=== PATIENT | female | born 1980 | race African-American/Black ===

== ENCOUNTER 2019-08-01 15:46 | Emergency (ER) | payer MEDICAID, MEDICARE, OTHER ==
[~2019-08-01] VITALS: Ht 162.6 cm; Wt 131.5 kg
[~2019-08-01 15:46] MED LIST: CLON0.1T PO; LISI1TAB20 PO; OXYC10TA PO
[2019-08-01 15:57] VITALS: BP 153/106
[2019-08-01] MEDS ORDERED: BENZ100C PO (16:11)
--- NOTE | 2019-08-01 16:12 | PHYS DOC ---
Past Medical History Past Medical History: Hypertension Additional Past Medical Histor: back pain Past Surgical History: , Other Additional Past Surgical Histo: back surrgery Alcohol Use: None Drug Use: None Adult General Chief Complaint Chief Complaint: COUGH HPI HPI Patient is a 38 year old AA female who presents to the emergency department with complaints of a productive cough with creamy mucus, runny nose, body aches, chills, sweats, headaches, fatigue, and tactile fevers with nausea for the last 3 days. Patient states she has had 3 episodes of diarrhea today. She denies any dysuria, hematuria, increased urinary frequency, abdominal pain, ear pain, v ision changes, or dizziness at this time. Patient states she has had a sore throat also. Patient denies any shortness of breath or wheezing. She states she does smoke a pack of cigarettes a day. Patient reports history of high blood pressure states that she took her blood pressure medication this morning. She currently rates her discomfort an 8 out of 10 on the pain scale, she denies any alleviating factors. All other ROS is neg unless otherwise noted in HPI. Review of Systems Review of Systems See Above Allergies Allergies Allergies Coded Allergies Type Severity Reaction Last Updated Verified morphine Allergy Intermediate hives 01/04/15 Yes Physical Exam Physical Exam See Above Constitutional: Well developed, well nourished, no acute distress, ill appearance, obese HENT: Normocephalic, atraumatic, bilateral external ears normal, bilateral TMs normal, posterior pharynx congested, oropharynx moist, no oral exudates, nasal turbinates erythematous bilaterally Eyes: PERRLA, EOMI, conjunctiva normal, no discharge. [] Neck: Normal range of motion, no stridor. [] Cardiovascular:Heart rate regular rhythm Lungs & Thorax: Bilateral breath sounds clear to auscultation, Respirations even and unlabored, no retractions, no respiratory distress[] Skin: Warm, dry, no erythema, no rash. [] Back: No tenderness Extremities: No cyanosis, ROM intact Neurologic: Alert and oriented X 3, no focal deficits noted. [] Psychologic: Affect normal, judgement normal, mood normal. [] Current Patient Data Vital Signs Vital Signs Date Time Temp Pulse Resp B/P (MAP) Pulse Ox O2 Delivery O2 Flow Rate FiO2 08/01/19 15:57 98.9 106 18 153/106 (122) 98 Room Air 98.9 EKG EKG [] Radiology/Procedures Radiology/Procedures [] Course & Med Decision Making Course & Med Decision Making Pertinent Labs and Imaging studies reviewed. (See chart for details) Diagnosis URI with cough and congestion Advised patient that testing for the flu was not necessary as the symptoms started 3 days ago. Offered to prescribe patient an inhaler to to use as needed for shortness of breath. Patient declines inhaler states that she is not short of breath. Prescription written for Michellesalon Sara. Patient given URI instructions. Follow up with her primary care doctor if symptoms persist, return to the ER if symptoms worsen. Patient verbalized an understanding of home care, medications, follow-up, and return to ED instructions and was in agreement with the plan of care. [] Dragon Disclaimer Dragon Disclaimer This electronic medical record was generated, in whole or in part, using a voice recognition dictation system. Departure Departure Impression: Primary Impression: URI with cough and congestion Disposition: HOME, SELF-CARE Condition: STABLE Referrals: UTE SALDANA (PCP) Patient Instructions: Cough, Adult, Ynkz-[id number], Upper Respiratory Infection, Adult, Ivob-jp-Vici Additional Instructions: Fill prescription(s) and use as directed. Recommend use of a Cool mist humidifier in room at bedtime. Alternate Tylenol or ibuprofen as needed for pain/fever. Increase clear fluids. Avoid airway triggers such as smoke, fragrance, dust, and pollen. Follow-up with your primary care doctor if symptoms persist, return to the ER if symptoms worsen. Scripts Benzonatate (TESSALON PERLE) 100 Mg Capsule 1 CAP PO TID PRN for COUGH for 7 Days, #21 CAP 0 Refills Prov: NANY TOBAR ASSISTANT LOAN PROCESSOR 08/01/19 NANY TOBAR ASSISTANT LOAN PROCESSOR Aug 01, 2019 16:12
== END 2019-08-01 16:20 | disposition home or self-care (01) ==
LOC: ER 15:46
DX: J06.9 Acute upper respiratory infection, unspecified (principal); R05 Cough; R09.81 Nasal congestion; R19.7 Diarrhea, unspecified; R51 Headache; R50.9 Fever, unspecified; I10 Essential (primary) hypertension; Z98.890 Other specified postprocedural states; Z88.6 Allergy status to analgesic agent
CPT/HCPCS: 99283

== ENCOUNTER 2019-08-17 23:52 | Emergency (ER) | payer SELFPAY ==
[~2019-08-17] VITALS: Ht 162.6 cm; Wt 131.5 kg
[~2019-08-17 23:52] MED LIST changes: +BENZ100C PO
[2019-08-17 23:57] VITALS: BP 165/95
--- NOTE | 2019-08-18 00:13 | PHYS DOC ---
Past Medical History Past Medical History: Hypertension Additional Past Medical Histor: back pain Past Surgical History: , Other Additional Past Surgical Histo: back surrgery Alcohol Use: None Drug Use: None Adult General Chief Complaint Chief Complaint: KNEE SWELLING [facility] HPI 39-year-old female presents to the emergency department with complaints of right knee pain, swelling. Patient states this is been ongoing for approximately 1 week worse today states she's had difficulty with ambulating. She denies any injury, no fall, no fevers. Ambulation and weightbearing make her pain worse. Nothing makes her pain better, she has tried liqo-bvc-leygksk medications without relief. Review of Systems Review of Systems Constitutional: Denies fever or chills [] Cardiovascular: No additional information not addressed in HPI [] GI: Denies abdominal pain, nausea, vomiting, bloody stools or diarrhea [] Musculoskeletal: right knee pain Integument: Denies rash or skin lesions [] Neurologic: Denies headache, focal weakness or sensory changes [] All other systems were reviewed and found to be within normal limits, except as documented in this note. Current Medications Current Medications Current Medications Medications (Trade) Dose Ordered Sig/Josseline Start Time Stop Time Status Last Admin Dose Admin Ketorolac Tromethamine (Toradol Im) 60 mg 1X ONCE 08/18/19 01:00 08/18/19 01:01 08/18/19 00:53 60 MG Allergies Allergies Allergies Coded Allergies Type Severity Reaction Last Updated Verified morphine Allergy Intermediate hives 01/04/15 Yes Physical Exam Physical Exam Constitutional: Well developed, well nourished, mild distress 2/2 pain, non- toxic appearance. [] Cardiovascular:Heart rate regular rhythm, no murmur [] Lungs & Thorax: Bilateral breath sounds clear to auscultation [] Abdomen: Bowel sounds normal, soft, no tenderness, no masses, no pulsatile masses. [] Skin: Warm, dry, no erythema, no rash. [] Extremities: No tenderness, minimal swelling appreciated to right knee, pain with ROM however difficult to appreciated effusion given body habitus[] Neurologic: Alert and oriented X 3, no focal deficits noted. [] Psychologic: Affect normal, judgement normal, mood normal. [] Current Patient Data Vital Signs Vital Signs Date Time Temp Pulse Resp B/P (MAP) Pulse Ox O2 Delivery O2 Flow Rate FiO2 08/17/19 23:57 98.4 105 20 165/95 (118) 98 Room Air 98.4 EKG EKG [] Radiology/Procedures Radiology/Procedures [facility] [address] [place] [address] IMAGING REPORT Signed PATIENT: ASYA CONN ACCOUNT: [id number] : 1980 LOCATION: ER AGE: 39 SEX: F EXAM STATUS: REG ER ORD. PHYSICIAN: RAFAEL GONZALEZ MD REASON: knee pain/swelling PROCEDURE: KNEE RIGHT 3V Exam: Right knee 3 views INDICATION: Knee pain/swelling TECHNIQUE: Frontal, lateral and oblique views of the right knee Comparisons: None FINDINGS: Small suprapatellar effusion is noted. Bone mineralization is normal. No acute or healed fractures. Joint spaces are well-maintained. IMPRESSION: Small suprapatellar effusion without underlying osseous abnormality identified. Electronically signed by: Mil Lagunas MD (08/18/2019 12:40 AM) [facility] DICTATED and SIGNED BY: MIL LAGUNAS MD DATE: 08/18/1939 [] Course & Med Decision Making Course & Med Decision Making Pertinent Labs and Imaging studies reviewed. (See chart for details) []39-year-old female presents to the emergency department with complaints of right knee pain, swelling. Patient states this is been ongoing for approximately 1 week worse today states she's had difficulty with ambulating. She denies any injury, no fall, no fevers. Ambulation and weightbearing make her pain worse. Nothing makes her pain better, she has tried zyaw-dyn-cgstuhi medications without relief. Xray with small prepatellar effusion, no fracture Recommend knee immobilizer and crutches as needed Recommend follow up with Ortho as outpatient - referral provided Tylenol/Motrin as needed for pain Jhonatan Disclaimer Dragon Disclaimer This electronic medical record was generated, in whole or in part, using a voice recognition dictation system. Departure Departure Impression: Primary Impression: Knee pain Referrals: NO PCP (PCP) Patient Instructions: Knee Pain, Yjmw-cl-Oboh Additional Instructions: Recommend follow up with PCP 3 - 5 days Return to the ER with worsening symptoms, fever, altered mental status Tylenol/Motrin as needed for pain Knee Immobilizer placed to right knee Crutches as needed Toradol 60mg IM shot provided upon discharge Problem Qualifiers Primary Impression: Knee pain Chronicity: acute Laterality: right Qualified Codes: M25.561 - Pain in right knee RAFAEL GONZALEZ MD Aug 18, 2019 00:13
--- NOTE | 2019-08-18 00:44 | RAD ---
Exam: Right knee 3 views INDICATION: Knee pain/swelling TECHNIQUE: Frontal, lateral and oblique views of the right knee Comparisons: None FINDINGS: Small suprapatellar effusion is noted. Bone mineralization is normal. No acute or healed fractures. Joint spaces are well-maintained. IMPRESSION: Small suprapatellar effusion without underlying osseous abnormality identified. Electronically signed by: Mil Woodson MD (08/18/2019 12:40 AM) [facility]
[2019-08-18] MEDS ORDERED: KETOROLAC 60 MG/2 ML VIAL. IM ONE (01:00)
== END 2019-08-18 01:23 | disposition home or self-care (01) ==
LOC: ER 23:52
DX: M25.561 Pain in right knee (principal); I10 Essential (primary) hypertension; Z98.890 Other specified postprocedural states; Z88.6 Allergy status to analgesic agent
CPT/HCPCS: 29105; 73562; 96372; 99284; J1885

== ENCOUNTER 2020-01-27 01:39 | Emergency (ER) | payer MEDICAID ==
[~2020-01-27] VITALS: Ht 162.6 cm; Wt 126.5 kg
[2020-01-27 01:50] VITALS: BP 156/83
[2020-01-27] MEDS ORDERED: CYCL10TA2 PO (02:23)
[2020-01-27] MEDS ORDERED: DICL50TA4 PO (02:23)
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
[2020-01-27] MEDS ORDERED: traMADol 50 MG TABLET PO ONE (02:45)
[2020-01-27] MEDS ORDERED: METHOCARBAMOL 750 MG TABLET PO ONE (02:45)
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
== END 2020-01-27 03:23 | disposition home or self-care (01) ==
LOC: ER 01:39
DX: S29.012A Strain of muscle and tendon of back wall of thorax, initial encounter (principal); M54.2 Cervicalgia; M79.651 Pain in right thigh; I10 Essential (primary) hypertension; F17.200 Nicotine dependence, unspecified, uncomplicated; Z98.890 Other specified postprocedural states; V89.2XXA Person injured in unspecified motor-vehicle accident, traffic, initial encounter; Y93.89 Activity, other specified; Y92.413 State road as the place of occurrence of the external cause; Y99.8 Other external cause status
CPT/HCPCS: 72040; 72072; 81025; 99284

== ENCOUNTER → 2020-02-08 | Outpatient (CLI) | payer MEDICAID ==
[2020-01-27 01:50] VITALS: BP 156/83
[~2020-02-08] MED LIST changes: +CYCL10TA2 PO; +DICL50TA4 PO
--- NOTE | 2020-02-08 16:02 | KCIC ---
EXAMINATION: Magnetic resonance imaging (MRI) of the lumbar spine without contrast 02/08/2020 2:45 PM HISTORY: Low back pain into the right hip, leg and knee TECHNIQUE: Multiplanar multi-weighted MRI of the lumbar spine was performed without intravenous contrast using the standard lumbar spine protocol. Contrast information: None administered. COMPARISON: None available. FINDINGS: The alignment of the lumbar spine is normal. Transitional anatomy is identified the lumbosacral junction with lumbarization of the first sacral segment and rudimentary disc at S1-S2 for the purposes of this examination. Vertebral bodies demonstrate normal signal intensity on all sequences. There are no compression fractures. The conus medullaris terminates at the level of L1. The distal spinal cord signal intensity is normal. Intervertebral disks have normal height and signal intensity. There are no annular fissures identified. Limited views of the abdomen and pelvis show no soft tissue abnormality. The aorta is normal. L1-L2: The disc is normal in configuration. There is no facet arthropathy. There is no neuroforaminal stenosis. There is no spinal canal stenosis. L2-L3: The disc is normal in configuration. There is no facet arthropathy. There is no neuroforaminal stenosis. There is no spinal canal stenosis. L3-L4: The disc is normal in configuration. There is no facet arthropathy. There is no neuroforaminal stenosis. There is no spinal canal stenosis. L4-L5: The disc is normal in configuration. There is no facet arthropathy. There is no neuroforaminal stenosis. There is no spinal canal stenosis. L5-S1: There is a circumferential disc bulge with right central disc extrusion extending to the right foraminal zone. There is moderate facet arthropathy with ligamentum flavum infolding. There is moderate to severe right and mild left neuroforaminal stenosis. There is moderate to severe spinal canal stenosis. IMPRESSION: Circumferential disc bulge with right central disc extrusion extending to the right foraminal zone with moderate facet arthropathy and ligamentum flavum infolding. Findings result in moderate to severe right and mild left neuroforaminal stenosis and moderate to severe spinal canal stenosis. Electronically signed by: Agueda Lim MD (02/08/2020 3:59 PM) [facility]
--- NOTE | 2020-02-08 16:09 | KCIC ---
MR of the right knee HISTORY: Right knee pain. Swelling. TECHNIQUE: Routine multiplanar sequences are obtained. FINDINGS: Ocuo-ol-[id number] motion degradation. Linear signal within the medial meniscus with slight inferior surface violation on a sagittal slice, raising the question of a small tear but this appearance is likely accentuated by the motion. Lateral meniscal signal, also likely exaggerated by the motion degradation, no definitive tear. Anterior and posterior cruciate ligaments are intact. Mild thickening or scarring of the proximal medial collateral ligament without acute tear. No acute tear fibular collateral ligament, biceps femoris tendon or popliteus tendon attachment. The patellar tendon and quadriceps tendon are intact. No acute retinacular disruption. Moderate joint effusion. Trace fluid in the popliteal fossa. Small full-thickness chondral defect of the inferior patella, measures 4 mm wide by 7 mm height. Minimal subjacent marrow edema. Severe chondral thinning of the medial joint compartment, particularly the medial femoral condylar weightbearing aspect. Small lateral compartment osteophytes without gross chondral defect. No acute fracture. No aggressive bone destruction. Minimal fluid along the anterior knee. IMPRESSION: 1. Mild signal within medial and lateral menisci. This is likely accentuated by motion degradation. No definite tear but difficult to exclude a small tear of either meniscus. 2. Small full-thickness articular cartilage defect of the patella. 3. Severe degenerative chondral thinning at the medial joint compartment. 4. Moderate joint effusion. Electronically signed by: Dave Troncoso MD (02/08/2020 4:06 PM) [place] [id number]
== END | disposition home or self-care (01) ==
LOC: KCIC MRI 13:59
PROVIDERS: ATTEND Physician Assistant
DX: M47.816 Spondylosis without myelopathy or radiculopathy, lumbar region (principal); M48.061 Spinal stenosis, lumbar region without neurogenic claudication; M25.461 Effusion, right knee; M25.761 Osteophyte, right knee; M99.53 Intervertebral disc stenosis of neural canal of lumbar region; M48.07 Spinal stenosis, lumbosacral region
CPT/HCPCS: 72148; 73721

== ENCOUNTER → 2020-03-24 | Outpatient (CLI) | payer MEDICAID ==
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
== END | disposition home or self-care (01) ==
LOC: PNCL 10:13
PROVIDERS: ATTEND Anesthesiology
DX: M54.5 Low back pain (principal); I10 Essential (primary) hypertension; F17.210 Nicotine dependence, cigarettes, uncomplicated; Z88.8 Allergy status to other drugs, medicaments and biological substances; Z82.49 Family history of ischemic heart disease and other diseases of the circulatory system
CPT/HCPCS: G0463

== ENCOUNTER → 2020-04-17 | Outpatient (CLI) | payer MEDICAID ==
[~2020-04-17] MED LIST changes: +IOHEXOL 180 MG/ML 10 ML VIAL. ONE; +methylPREDNISolone ACETATE 40 MG/ML VIAL. ONE; +methylPREDNISolone ACETATE 80 MG/ML VIAL. ONE
--- NOTE | 2020-04-17 11:28 | PDOC ---
Progress Note - Pain Clinic Date of Service: DOS: DATE: 04/17/20 TIME: 11:24 Diagnosis: Dx: Lumbar radiculopathy with lumbar degenerative disc disease and lumbar spinal stenosis History or Present Illness: HPI: 39-year-old female returns for follow-up status post initial evaluation and preauthorization for lumbar epidural steroid injection. Patient reports still significant pain low back right lower extremities was previously in the posterior gluteus posterior thigh to the calf as well on the right side. Patient reports the Medrol Dosepak retry was not significantly improving the pain she reports pain is 10 on a scale of 10 is worst the past week 10 on average and a 10 its least is a 10 today. Patient reports no new motor or sensory deficits no bowel or bladder incontinence or other complaints. Patient reports the pain wakes her from sleep about every 4 hours, no overt motor loss but significant fatigability the right leg with walking and standing better with sitting. Physical Exam: VS: Blood pressure is 130/84 pulse 90 respirations 16 temperature 98.2 F height is 5 feet forges weight is 265 pounds PE: PHYSICAL EXAMINATION: GENERAL: The patient is awake, alert, oriented, appropriate, very pleasant demeanor HEENT: Shows normocephalic, atraumatic. Extraocular movements are intact and symmetrical. Oral cavity: Mucous membranes moist and pink. NECK: Shows anterior throat supple without palpable lymphadenopathy noted. Swallow reflex symmetrical. CHEST: Shows normal on inspection. Breath sounds are clear bilaterally. HEART: Shows S1, S2 clear. No murmurs auscultated. ABDOMEN: Soft, nontender, nondistended. No palpable organomegaly is noted. No rebound or guarding demonstrated. BACK: Shows spine grossly in the midline. Normal-appearing cervical lordotic curvature. There is slightly increased thoracic kyphosis, some minor flattening of the lumbar lordotic curvature. Lumbar paraspinous muscles show symmetrical on inspection, on palpation shows some moderate tenderness diffusely throughout the upper, middle and lower distribution of the paraspinous muscles bilaterally without specific trigger points, without radiation of pain. The patient has good rotational motion of the lumbar spine, both laterally as well as extension and flexion without significant difficulty. EXTREMITIES: Lower extremities show deep tendon reflexes 2+ in the patellar and tendo calcaneus tendons. Motor exam is 4 on a scale of 5 with right dorsiflexion, extension, quadriceps and hamstring flexion and 5/5 on the left. Peripheral pulses are 1+ posterior tibial. No peripheral edema is noted bilaterally. Lower extremities are warm and dry to touch, equal in color and appearance. SKIN: Shows warm and dry, good turgor. No edema. No sores, rashes or bruising throughout. Procedure: Procedure: Options were discussed with the patient. Patient will chart reviewed his current medication regimen updated current review of systems updated today as well. We will proceed with a lumbar epidural steroid injection today with fluoroscopic guidance. Risks are discussed including but not limited to ble eding infection possibility of epidural hematoma subsequent neurological compromise dural puncture headache spinal cord and or nerve damage side effects of steroid medication and portals regarding pain control. Patient understands wishes to proceed. Patient return to clinic in approximately 2 weeks for follow-up, was counseled as to return appointment activity level and side effe cts to be aware of. Medication Injected: Med Injected: Procedure is lumbar epidural steroid injection under local anesthetic using sterile prep and drape at the L5-S1 level using C-arm fluoroscopic guidance in both AP and lateral views medications injected is 120 mg Depo-Medrol + 10 mL preservative-free normal saline and 2 mL contrast- condition at discharge is stable patient tolerated procedure well had no complications. Condition at Discharge: Condition at Discharge: Condition at discharge stable patient tolerated procedure well had no complications. GIULIA MORRISON MD Apr 17, 2020 11:28
== END | disposition home or self-care (01) ==
LOC: PNCL 10:55
PROVIDERS: ATTEND Anesthesiology
DX: M51.16 Intervertebral disc disorders with radiculopathy, lumbar region (principal); M48.061 Spinal stenosis, lumbar region without neurogenic claudication; Z87.891 Personal history of nicotine dependence; Z79.899 Other long term (current) drug therapy; Z88.8 Allergy status to other drugs, medicaments and biological substances
CPT/HCPCS: 62323; J1030; J1040; Q9965

== ENCOUNTER 2020-08-03 19:29 | Emergency (ER) | payer MEDICAID ==
[~2020-08-03] VITALS: Ht 165.1 cm; Wt 118.0 kg
[~2020-08-03 19:29] MED LIST changes: -IOHEXOL 180 MG/ML 10 ML VIAL. ONE; -methylPREDNISolone ACETATE 40 MG/ML VIAL. ONE; -methylPREDNISolone ACETATE 80 MG/ML VIAL. ONE
--- NOTE | 2020-08-03 20:28 | PHYS DOC ---
Past Medical History Past Medical History: Hypertension Additional Past Medical Histor: back pain Past Surgical History: , Other Additional Past Surgical Histo: back surrgery Smoking Status: Current Every Day Smoker Alcohol Use: Heavy Drug Use: None Adult General Chief Complaint Chief Complaint: NAUSEA/VOMITING/DIARRHA HPI HPI Patient is a 40-year-old female complaining of nausea, vomit and diarrhea. States yesterday was her birthday, reports drinking a lot. States she drank " a couple beers and a lot of Heena". States she went to bed at 5 AM this morning she thinks, slept poorly but reports ongoing nausea, numerous episodes of nonbloody nonbilious vomit, and diarrhea today. States she has had generalized abdominal discomfort and "liver pains". States she typically does not binge drink but has had more chronic pain than usual and wanted to make it go away. Review of Systems Review of Systems Fourteen body systems of review of systems have been reviewed. See HPI for pertinent positives and negative responses, other garrett all other systems are negative, non-pertinent or non-contributory Current Medications Current Medications Current Medications Medications (Trade) Dose Ordered Sig/Josseline Start Time Stop Time Status Last Admin Dose Admin Ondansetron HCl (Zofran) 4 mg 1X ONCE 08/03/20 20:45 08/03/20 20:46 DC 08/03/20 21:09 4 MG Sodium Chloride 1,000 ml @ 0 mls/hr 1X ONCE 08/03/20 20:45 08/03/20 20:46 DC 08/03/20 21:10 1,000 MLS/HR Allergies Allergies Allergies Coded Allergies Type Severity Reaction Last Updated Verified lisinopril Allergy Intermediate Swelling 08/03/20 Yes morphine Allergy Intermediate hives 01/04/15 Yes naproxen Allergy Mild Itching 08/03/20 Yes Physical Exam Physical Exam Constitutional: Well developed, well nourished, no acute distress, non-toxic appearance. HENT: Normocephalic, atraumatic, bilateral external ears normal, oropharynx moist, no oral exudates, nose normal. Eyes: PERRLA, EOMI, conjunctiva normal, no discharge. Neck: Normal range of motion, no tenderness, supple, no stridor. Cardiovascular: Heart rate regular, sinus rhythm, no murmurs rubs or gallops Lungs & Thorax: Bilateral breath sounds clear to auscultation Abdomen: Bowel sounds normal, soft, no tenderness, no masses, no pulsatile masses. Nonsurgical abdomen, no peritoneal signs Skin: Warm, dry, no erythema, no rash. Back: No tenderness, no CVA tenderness. Extremities: No tenderness, no cyanosis, no clubbing, ROM intact, no edema. Neurologic: Alert and oriented X 3, grossly normal motor & sensory function, no focal deficits noted. Psychologic: Affect normal, judgement normal, mood normal. Current Patient Data Vital Signs Vital Signs Date Time Temp Pulse Resp B/P (MAP) Pulse Ox O2 Delivery O2 Flow Rate FiO2 08/03/20 20:13 98.3 98 32 166/83 (110) 99 Room Air 98.3 Lab Values Laboratory Tests Test 08/03/20 20:57 Sodium Level 142 mmol/L (136-145) Potassium Level 3.5 mmol/L (3.5-5.1) Chloride Level 103 mmol/L (98-107) Carbon Dioxide Level 25 mmol/L (21-32) Anion Gap 14 (6-14) Blood Urea Nitrogen 7 mg/dL (7-20) Creatinine 0.8 mg/dL (0.6-1.0) Estimated GFR (Cockcroft-Gault) 96.6 BUN/Creatinine Ratio 9 (6-20) Glucose Level 102 mg/dL (70-99) H Calcium Level 9.0 mg/dL (8.5-10.1) Total Bilirubin 0.7 mg/dL (0.2-1.0) Aspartate Amino Transferase (AST) 14 U/L (15-37) L Alanine Aminotransferase (ALT) 12 U/L (14-59) L Alkaline Phosphatase 90 U/L (46-116) Total Protein 7.8 g/dL (6.4-8.2) Albumin 3.5 g/dL (3.4-5.0) Albumin/Globulin Ratio 0.8 (1.0-1.7) L Laboratory Tests 08/03/20 20:57 EKG EKG [] Radiology/Procedures Radiology/Procedures [] Course & Med Decision Making Course & Med Decision Making Pertinent Labs and Imaging studies reviewed. (See chart for details) I discussed most likely diagnosis of sequelae of binge drinking alcohol. Patient responded to supportive care provided while in ER setting. Patient st ates she is feeling better and wanting to go home at end of ER course. She requested narcotic pain medication but this was declined I advised ongoing need of supportive care for her hangover. Patient is tolerating p.o. intake, I advised NSAIDs and/or Tylenol for pains and aches as needed. I advised continued p.o. intake of electrolyte rich fluids. I also advised her to abstain from excessive alcohol use Patient has good access to primary care provider, I advised her to follow-up with an upcoming 1 to 5 days for repeat evaluation and to discuss her chronic pain. Strict return precautions were discussed with good understanding by patient, all questions and concerns addressed prior to ER departure in improved condition Dragon Disclaimer Dragon Disclaimer This electronic medical record was generated, in whole or in part, using a voice recognition dictation system. Departure Departure Impression: Primary Impression: Alcohol abuse Additional Impression: Nausea vomiting and diarrhea Disposition: DC HOME SELF CARE/HOMELESS Condition: IMPROVED Referrals: UNKNOWN PCP NAME (PCP) Patient Instructions: Alcohol and Headaches, Alcohol, FAQs, How Much is Too Much Alcohol, [id number] Additional Instructions: You have been evaluated in the Emergency Department today for abdominal pain. Your evaluation was not suggestive of any emergent condition requiring medical intervention at this time. However, some abdominal problems make take more time to appear. Therefore, it is important for you to watch for any new symptoms or worsening of your current condition. As discussed your findings today are most likely due to recent ingestion of large quantities of alcohol. There is no obvious emergent and/or surgical findings today. With that said, this might be an acute presentation of more concerning pathology and so, close observation and outpatient follow-up advised Return to the Emergency Department if you experience worsening pain, persistent fevers greater than 100.4, recurrent vomiting, blood in vomit, blood in stool, dark tarry stool, chest pain, difficulty breathing, or any other concerning symptoms. Scripts Ondansetron Hcl (ZOFRAN) 4 Mg Tablet 4 MG PO PRN TID PRN for NAUSEA, #15 nausea/vomiting Prov: ADELIA MARIN DO 08/03/20 Problem Qualifiers ADELIA MARIN DO Aug 03, 2020 20:28
[2020-08-03] MEDS: ONDANSETRON PF 4 MG/2 ML VIAL. IVP ONE (21:09)
[2020-08-03] MEDS: IV NORMAL SALINE 1000ML BAG 1,000 ML IV ONE (21:10)
[2020-08-03 21:30] LABS: CREATININE 0.8 mg/dL (0.6-1.0); GFR 96.6; POTASSIUM 3.5 mmol/L (3.5-5.1)
[2020-08-03 21:36] LABS: ALBUMIN 3.5 g/dL (3.4-5.0); ALBUMIN/GLOBULIN RATIO 0.8 (1.0-1.7); TOTAL BILIRUBIN 0.7 mg/dL (0.2-1.0); TOTAL PROTEIN 7.8 g/dL (6.4-8.2)
[2020-08-03 22:21] VITALS: BP 156/88
[2020-08-03] MEDS ORDERED: ONDA4TAB7 PO (22:25)
== END 2020-08-03 22:30 | disposition home or self-care (01) ==
LOC: ER 19:29
DX: F10.10 Alcohol abuse, uncomplicated (principal); R11.2 Nausea with vomiting, unspecified; R19.7 Diarrhea, unspecified; I10 Essential (primary) hypertension; F17.200 Nicotine dependence, unspecified, uncomplicated; Z98.890 Other specified postprocedural states; Z88.6 Allergy status to analgesic agent; Z88.8 Allergy status to other drugs, medicaments and biological substances
CPT/HCPCS: 36415; 80053; 96374; 99285; J2405; J7030

== ENCOUNTER → 2021-05-02 | Outpatient (CLI) | payer MEDICAID ==
[~2021-05-02] MED LIST changes: +ONDA4TAB7 PO
--- NOTE | 2021-05-02 16:14 | KCIC ---
EXAMINATION: Magnetic resonance imaging (MRI) of the lumbar spine without contrast 05/02/2021 2:15 PM HISTORY: Low back pain. Surgery in October 2020. Bilateral lower extremity pain. Symptoms worse since s urgery. TECHNIQUE: Multiplanar multi-weighted MRI of the lumbar spine was performed without intravenous contr ast using the standard lumbar spine protocol. Contrast information: None administered. COMPARISON: MR lumbar spine 02/08/2020 FINDINGS: Alignment lumbar spine is maintained. There is posterior and interbody fusion at L5-S1. Vertebral bod ies demonstrate normal signal intensity on all sequences. There are no compression fractures. The c onus medullaris terminates at the level of L1. The distal spinal cord signal intensity is normal. In tervertebral disks have normal height and signal intensity. There are no annular fissures identified. Limited views of the abdomen and pelvis show no soft tissue abnormality. The aorta is normal. L1-L2: The disc is normal in configuration. There is no facet arthropathy. There is no neuroforaminal stenosis. There is no spinal canal stenosis. L2-L3: The disc is normal in configuration. There is no facet arthropathy. There is no neuroforaminal stenosis. There is no spinal canal stenosis. L3-L4: The disc is normal in configuration. There is no facet arthropathy. There is no neuroforaminal stenosis. There is no spinal canal stenosis. L4-L5: The disc is normal in configuration. There is no facet arthropathy. There is no neuroforaminal stenosis. There is no spinal canal stenosis. L5-S1: This level is fused. Mild to moderate facet arthropathy with ligamentum flavum infolding. Micr odiscectomy changes are identified without residual spinal canal stenosis. No mass effect on the righ t lateral recess. Limited evaluation the right neural foramen secondary to artifact from adjacent copoer dware. IMPRESSION: Posterior and interbody fusion identified at L5-S1 without residual spinal canal stenosis. Limited ev aluation of the right neural foramen secondary to artifact from hardware. No new disc herniation, neuroforaminal or spinal canal stenosis. Electronically signed by: Agueda Lim MD (05/02/2021 4:12 PM) [id number]
== END ==
LOC: KCIC MRI 13:54
PROVIDERS: ATTEND Hospitalist
DX: M48.8X7 Other specified spondylopathies, lumbosacral region (principal); Z98.1 Arthrodesis status
CPT/HCPCS: 72148

== ENCOUNTER 2021-05-31 05:17 | Emergency (ER) | payer MEDICAID ==
[~2021-05-31] VITALS: Ht 162.6 cm; Wt 115.0 kg
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
[2021-05-31] MEDS ORDERED: NITROGLYCERIN SUBLINGUAL 0.4 MG BOTTLE OF 25. SL PRN (06:15)
[2021-05-31] MEDS ORDERED: ASPIRIN CHEWABLE 81 MG TABLET. PO ONE (06:30)
[2021-05-31 06:34] LABS: BASO # 0.1 x10^3/uL (0.0-0.2); BASO % 0 % (0-3); EOS % 0 % (0-3); HEMOGLOBIN 11.3 g/dL (12.0-15.5); LYMPH # 2.8 x10^3/uL (1.0-4.8); LYMPH % 22 % (24-48); MEAN CORPUSCULAR HEMOGLOBIN 28 pg (25-35); MEAN CORPUSCULAR HGB CONC 32 g/dL (31-37); MEAN CORPUSCULAR VOLUME 86 fL (79-100); MONO # 0.7 x10^3/uL (0.0-1.1); MONO % 6 % (0-9); NEUT # 8.9 x10^3/uL (1.8-7.7); NEUT % 71 % (31-73); PLATELET COUNT 382 x10^3/uL (140-400); RED BLOOD COUNT 4.06 x10^6/uL (3.50-5.40); RED CELL DISTRIBUTION WIDTH 16.9 % (11.5-14.5); WHITE BLOOD COUNT 12.5 x10^3/uL (4.0-11.0)
[2021-05-31 06:55] LABS: CALCIUM 8.5 mg/dL (8.5-10.1); CREATININE 0.9 mg/dL (0.6-1.0); GFR 84.3; MAGNESIUM 1.9 mg/dL (1.8-2.4); POTASSIUM 3.2 mmol/L (3.5-5.1)
--- NOTE | 2021-05-31 07:08 | EKG ---
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
[2021-05-31] MEDS ORDERED: IOHEXOL 350 MG/ML 100 ML VIAL. IV ONE ×2 (07:15→10:00)
[2021-05-31] MEDS ORDERED: CONTRAST GIVEN. MC PRN (07:30)
[2021-05-31] MEDS ORDERED: POTASSIUM CHLORIDE 10 MEQ TABLET.ER. PO ONE (08:15)
[2021-05-31 08:42] LABS: BILIRUBIN,URINE NEGATIVE (NEG); CLARITY,URINE CLEAR; COLOR,URINE YELLOW; NITRITE,URINE NEGATIVE (NEG); PH,URINE 5.5 (<5.0-8.0); PROTEIN,URINE NEGATIVE (NEG-TRACE); UROBILINOGEN,URINE 0.2 mg/dL (0.2 mg/dL)
[2021-05-31 08:53] LABS: BARBITURATES NEG (NEG); BENZODIAZEPINES POS (NEG); CANNABINOIDS NEG (NEG); COCAINE POS (NEG); METHADONE NEG (NEG); OPIATES NEG (NEG); PHENCYCLIDINE NEG (NEG)
[2021-05-31 08:54] LABS: AMPHETAMINE/METHAMPHETAMINE NEG (NEG)
[2021-05-31 09:07] LABS: WBC,URINE OCC /HPF (0-4)
[2021-05-31 09:08] LABS: BACTERIA,URINE FEW /HPF (0-FEW)
[2021-05-31] MEDS ORDERED: IV NORMAL SALINE 1000ML BAG 1,000 ML IV ONE (10:00)
[2021-05-31 10:30] VITALS: BP 159/104
--- NOTE | 2021-05-31 10:37 | RAD ---
EXAMINATION: CTA Chest With IV contrast INDICATION:40 years, Female, shortness of breath. COMPARISON: None. TECHNIQUE: Spiral CTA was obtained from the jugular notch through the posterior costophrenic recess. 3-D MIPS, sagittal and coronal reformats were obtained. Exposure: One or more of the following individualized dose reduction techniques were utilized for thi s examination: 1. Automated exposure control 2. Adjustment of the mA and/or kV according to patient size 3. Use of iterative reconstruction technique. FINDINGS: LUNGS/PLEURA: Central airways are patent. Subsegmental atelectasis in the left lung base. No focal co nsolidation, pleural effusion or pneumothorax. No suspicious pulmonary nodule. Calcified granuloma in the right lung base. MEDIASTINUM: No pathologic mediastinal or hilar adenopathy. Calcified mediastinal lymph nodes. The th oracic aorta and pulmonary arteries are normal in caliber. No evidence of pulmonary embolism. The hea rt is normal in size. No pericardial effusion. No detectable calcified coronary atherosclerosis. The visualized thyroid and the esophagus are unremarkable. AXILLA/SOFT TISSUE: No supraclavicular or axillary adenopathy. Regional soft tissues are within roberto l limits. UPPER ABDOMEN: Hyperdense foci in the stomach, likely ingested material probably medication. BONES: No evidence of acute fractures or aggressive osseous lesions. IMPRESSION: No evidence of pulmonary embolism. Electronically signed by: Verito Rodriguez MD (05/31/2021 10:35 AM) [facility]
== END 2021-05-31 11:30 | disposition home or self-care (01) ==
LOC: ER 05:17
DX: R07.2 Precordial pain (principal); F19.10 Other psychoactive substance abuse, uncomplicated; I10 Essential (primary) hypertension; F17.200 Nicotine dependence, unspecified, uncomplicated; F10.20 Alcohol dependence, uncomplicated; Z88.8 Allergy status to other drugs, medicaments and biological substances; Z88.5 Allergy status to narcotic agent; Y90.0 Blood alcohol level of less than 20 mg/100 ml
CPT/HCPCS: 36415; 71275; 80048; 80307; 81001; 81025; 83735; 83880; 84484; 85025; 93005; 96360; 99285; J7030; Q9967

== ENCOUNTER → 2021-06-25 | Outpatient (CLI) | payer OTHER ==
[2021-05-31 10:30] VITALS: BP 159/104
[~2021-06-25] MED LIST changes: +CYCL10TA19 PO; -CYCL10TA2 PO; -LISI1TAB20 PO; +LISI1TAB39 PO
--- NOTE | 2021-06-25 11:45 | RAD ---
3 views the cervical spine without comparison for neck pain. FINDINGS: There is straightening of the normal cervical lordosis. The atlantoaxial articulation is in tact. There is mild ossification anterior longitudinal ligament, and there is narrowing of the interv ertebral disc space at C6-7 with bulky anterior osteophyte. No significant facet arthrosis. Some narr owing at C7-T1 as well. IMPRESSION: 1. Straightening of normal cervical lordosis with degenerative disc disease at C6-7 and C7-T1. Electronically signed by: Brent Tyler MD (06/25/2021 11:42 AM) [id number]
== END ==
LOC: RAD 09:29
PROVIDERS: ATTEND Family Medicine
DX: Z02.71 Encounter for disability determination (principal); M50.33 Other cervical disc degeneration, cervicothoracic region; M48.03 Spinal stenosis, cervicothoracic region; M25.78 Osteophyte, vertebrae
CPT/HCPCS: 72040

== ENCOUNTER 2021-08-11 18:22 | Emergency (ER) | payer OTHER, MEDICAID ==
[~2021-08-11] VITALS: Ht 162.6 cm; Wt 123.1 kg
[2021-08-11] MEDS ORDERED: ORPHENADRINE CITRATE 60 MG/2 ML VIAL. IM ONE (19:15)
[2021-08-11] MEDS ORDERED: oxyCODONE/APAP 5/325 1 TAB TABLET PO ONE (19:15)
[2021-08-11] MEDS ORDERED: cloNIDine HCL 0.1 MG TABLET PO ONE (19:15)
[2021-08-11] MEDS ORDERED: DEXAMETHASONE SOD PHOS 4 MG/ML VIAL IM ONE (19:15)
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
[2021-08-11] MEDS ORDERED: ORPH100T PO (20:34)
[2021-08-11] MEDS ORDERED: CLON0.2T PO (20:34)
[2021-08-11] MEDS ORDERED: OXYC1TAB15 PO (20:34)
[2021-08-11 20:40] VITALS: BP 147/83
== END 2021-08-11 20:41 | disposition home or self-care (01) ==
LOC: ER 18:22
DX: S16.1XXA Strain of muscle, fascia and tendon at neck level, initial encounter (principal); S30.1XXA Contusion of abdominal wall, initial encounter; R07.89 Other chest pain; I10 Essential (primary) hypertension; M54.2 Cervicalgia; M54.6 Pain in thoracic spine; Z88.5 Allergy status to narcotic agent; Z88.8 Allergy status to other drugs, medicaments and biological substances; F17.200 Nicotine dependence, unspecified, uncomplicated; V98.8XXA Other specified transport accidents, initial encounter; Y93.89 Activity, other specified; Y92.89 Other specified places as the place of occurrence of the external cause; Y99.8 Other external cause status
CPT/HCPCS: 71046; 96372; 99284; J1100; J2360

== ENCOUNTER 2021-09-10 09:08 | Emergency (ER) | payer MEDICAID, OTHER ==
[~2021-09-10] VITALS: Ht 162.6 cm; Wt 118.0 kg
[~2021-09-10 09:08] MED LIST changes: +CLON0.2T PO; +ORPH100T PO; +OXYC1TAB15 PO
[2021-09-10] MEDS ORDERED: LIDOCAINE 1% PF 2 ML VIAL. INJ ONE (14:15)
[2021-09-10] MEDS ORDERED: cefTRIAXone IM 1 GM VIAL IM ONE (14:15)
[2021-09-10] MEDS ORDERED: oxyCODONE IR 5 MG TABLET PO ONE (14:15)
[2021-09-10] MEDS ORDERED: HYDR-2761 PO (16:00)
[2021-09-10] MEDS ORDERED: AMOX875T PO (16:00)
--- NOTE | 2021-09-10 16:02 | PHYS DOC ---
Past Medical History Past Medical History: Hypertension Additional Past Medical Histor: back pain (MANNY CHRISTIANSON VESSEL MANAGER) Past Surgical History: Lumbar Laminectomy, Tubal ligation, Other Additional Past Surgical Histo: back (MANNY CHRISTIANSON VESSEL MANAGER) Smoking Status: Current Every Day Smoker Alcohol Use: None Drug Use: None, Marijuana (MANNY CHRISTIANSON VESSEL MANAGER) General Adult EDM: Chief Complaint: DENTAL PROBLEM HPI: HPI: Patient is a 41 year old female presented to the ED today complaining of 10 out of 10 left upper gum pain, patient states symptoms of been going on since July. She states she was seen by the dentist and had a tooth extracted. She states she followed up with a dentist twice and they recommended she comes to the ED today for antibiotics and pain relief. She is also requesting a refill of oxycodone for her chronic back pain. Patient denies any fever or trismus. She is very insistent on getting her pain medicine to go home with. (MANNY CHRISTIANSON VESSEL MANAGER) Review of Systems: Review of Systems: Constitutional: Denies fever or chills. [] HENT: Reports left upper gum dental pain. Denies nasal congestion or sore throat. [] Musculoskeletal: Denies back pain or joint pain. [] Integument: Denies rash. [] Neurologic: Denies headache, focal weakness or sensory changes. [] Psychiatric: Denies depression or anxiety. [] (MANNY CHRISTIANSON VESSEL MANAGER) Heart Score: C/O Chest Pain: N/A Risk Factors: Risk Factors: DM, Current or recent (<one month) smoker, HTN, HLP, family history of CAD, obesity. Risk Scores: Score 0 - 3: 2.5% MACE over next 6 weeks - Discharge Home Score 4 - 6: 20.3% MACE over next 6 weeks - Admit for Clinical Observation Score 7 - 10: 72.7% MACE over next 6 weeks - Early Invasive Strategies (MANNY CHRISTIANSON Maria Elena VESSEL MANAGER) Current Medications: Current Medications Medications (Trade) Dose Ordered Sig/Josseline Start Time Stop Time Status Last Admin Dose Admin Ceftriaxone Sodium (Rocephin Im) 1 gm 1X ONCE 09/10/21 14:15 09/10/21 14:56 DC Lidocaine HCl (Xylocaine-Mpf 1% 2ml Vial) 2 ml 1X ONCE 09/10/21 14:15 09/10/21 14:56 DC Oxycodone HCl (Roxicodone) 10 mg 1X ONCE 09/10/21 14:15 09/10/21 14:56 DC (MANNY CHRISTIANSON APRN) Allergies: Allergies: Allergies Coded Allergies Type Severity Reaction Last Updated Verified lisinopril Allergy Intermediate Swelling 08/03/20 Yes morphine Allergy Intermediate hives 01/04/15 Yes naproxen Allergy Mild Itching 08/03/20 Yes (MANNY CHRISTIANSON APRN) Physical Exam: PE: Constitutional: Well developed, well nourished, no acute distress, non-toxic appearance. [] HENT: Normocephalic, atraumatic, bilateral external ears normal, oropharynx moist, no oral exudates, nose normal. [] Missing approximately tooth #13, slight swelling noted on the gum. Slight erythema noted on the gum. Dental caries noted to the other teeth. No abscess, no signs of a dry socket. Skin: Warm, dry, no erythema, no rash. [] Back: No tenderness, no CVA tenderness. [] Extremities: No tenderness, no cyanosis, no clubbing, ROM intact, no edema. [] Neurologic: Alert and oriented X 3, normal motor function, normal sensory function, no focal deficits noted. [] Psychologic: Affect normal, judgement normal, mood normal. [] (MANNY CHRISTIANSON APRN) EKG: EKG: [] (MANNY CHRISTIANSON APRN) Radiology/Procedures: Radiology/Procedures: [] (MANNY CHRISTIANSON APRN) Course & Med Decision Making: Course & Med Decision Making Pertinent Labs and Imaging studies reviewed. (See chart for details) This is a 41-year-old female patient presenting to the ED today with dental pain and request for refill of her pain medicine for chronic back pain. Informed her we will not refill her pain medicine. Offered a prescription for amoxicillin and 4 tablets of Valley. (MANNY CHRISTIANSON APRN) Dragon Disclaimer: Dragzenaida Disclaimer: This electronic medical record was generated, in whole or in part, using a voice recognition dictation system. (MANNY CHRISTIANSON APRN) Departure Departure Impression: Primary Impression: Dentalgia Disposition: 01 HOME / SELF CARE / HOMELESS Condition: STABLE Referrals: NO PCP (PCP) follow up with your dentist and back doctor for pain medicines Patient Instructions: Dental Pain Additional Instructions: You were seen for dental pain. Please follow-up with your dentist as soon as you can. Take the prescribed antibiotics as ordered. Scripts Hydrocodone Bit/Acetaminophen (HYDROCODONE-APAP 5-325 ) 1 Tab Tablet 1 TAB PO Q8HRS PRN for PAIN, #6 TAB 0 Refills Prov: MANNY CHRISTIANSON APRN 09/10/21 Amoxicillin (AMOXICILLIN) 875 Mg Tablet 1 TAB PO BID, #20 TAB Prov: MANNY CHRISTIANSON APRN 09/10/21 Attending Signature I have participated in the care of this patient and I have reviewed and agree with all pertinent clinical information above including history, exam, and recommendations. (ROCCO BRICE DO) MANNY CHRISTIANSON APRN Sep 10, 2021 16:02 ROCCO BRICE DO Sep 10, 2021 16:31
[2021-09-10 16:25] VITALS: BP 198/112
== END 2021-09-10 16:27 | disposition home or self-care (01) ==
LOC: ER 09:08
DX: K02.9 Dental caries, unspecified (principal); I10 Essential (primary) hypertension; F17.200 Nicotine dependence, unspecified, uncomplicated; Z88.8 Allergy status to other drugs, medicaments and biological substances; Z88.5 Allergy status to narcotic agent
CPT/HCPCS: 96372; 99283; J0696; J3490

== ENCOUNTER 2021-10-02 06:25 | Emergency (ER) | payer MEDICAID ==
[~2021-10-02] VITALS: Ht 162.6 cm; Wt 115.5 kg
[~2021-10-02 06:25] MED LIST changes: +AMOX875T PO; +HYDR-2761 PO
[2021-10-02] MEDS ORDERED: cloNIDine HCL 0.1 MG TABLET PO ONE (06:45)
--- NOTE | 2021-10-02 06:52 | PHYS DOC ---
Past Medical History Past Medical History: Hypertension Additional Past Medical Histor: back pain Past Surgical History: No Surgical History Additional Past Surgical Histo: back Smoking Status: Current Every Day Smoker Alcohol Use: None Drug Use: None, Marijuana General Adult EDM: Chief Complaint: UPPER EXTREMITY PAIN HPI: HPI: Patient is a 41 year old female who was brought here by EMS from home due to left shoulder pain, left arm pain, left side lower neck pain started 2 days ago. Patient says she got her COVID vaccine for the first time on last Friday., Patient woke up on Friday with pain to the left side of lower neck that radiated to left shoulder and left arm associated with some tingling sensation. Patient says she feels like a charley horse in her left upper arm and shoulder area patient denies any chest pain, no abdominal pain, no nausea vomiting. Patient denies any cough or fever. Patient does have history of hypertension, she is on clonidine 0.2 mg twice a day. Patient did not take her medication this morning patient denied headache. Review of Systems: Review of Systems: Constitutional: Denies fever or chills. [] Eyes: Denies change in visual acuity. [] HENT: Denies nasal congestion or sore throat. [] Respiratory: Denies cough or shortness of breath. [] Cardiovascular: Denies chest pain or edema. [] GI: Denies abdominal pain, nausea, vomiting, bloody stools or diarrhea. [] : Denies dysuria. [] Musculoskeletal: Positive for left side neck pain, left shoulder pain. Denies back pain or joint pain. [] Integument: Denies rash. [] Neurologic: Denies headache, focal weakness or sensory changes. [] Endocrine: Denies polyuria or polydipsia. [] Lymphatic: Denies swollen glands. [] Psychiatric: Denies depression or anxiety. [] Heart Score: C/O Chest Pain: N/A Risk Factors: Risk Factors: DM, Current or recent (<one month) smoker, HTN, HLP, family history of CAD, obesity. Risk Scores: Score 0 - 3: 2.5% MACE over next 6 weeks - Discharge Home Score 4 - 6: 20.3% MACE over next 6 weeks - Admit for Clinical Observation Score 7 - 10: 72.7% MACE over next 6 weeks - Early Invasive Strategies Current Medications: Current Medications Medications (Trade) Dose Ordered Sig/Josseline Start Time Stop Time Status Last Admin Dose Admin Clonidine HCl (Catapres) 0.2 mg 1X ONCE 10/02/21 06:45 10/02/21 06:46 DC Allergies: Allergies: Allergies Coded Allergies Type Severity Reaction Last Updated Verified lisinopril Allergy Intermediate Swelling 10/02/21 Yes morphine Allergy Intermediate hives 10/02/21 Yes naproxen Allergy Mild Itching 10/02/21 Yes Physical Exam: PE: Constitutional: Well developed, well nourished, no acute distress, non-toxic appearance. [] HENT: Normocephalic, atraumatic, bilateral external ears normal, oropharynx moist, no oral exudates, nose normal. [] Eyes: PERRLA, EOMI, conjunctiva normal, no discharge. [] Neck: Normal range of motion, no tenderness, supple, no stridor. [] Cardiovascular:Heart rate regular rhythm, no murmur [] Lungs & Thorax: Bilateral breath sounds clear to auscultation [] Abdomen: Bowel sounds normal, soft, no tenderness, no masses, no pulsatile m asses. [] Skin: Warm, dry, no erythema, no rash. [] Back: No tenderness, no CVA tenderness. [] Extremities: No tenderness, no cyanosis, no clubbing, ROM intact, no edema. No swelling of shoulder or left arm or left forearm. Good radial pulse, skin is warm to the touch. No clinical evidence of DVT or cellulitis. Neurologic: Alert and oriented X 3, normal motor function, normal sensory function, no focal deficits noted. [] Psychologic: Affect normal, judgement normal, mood normal. [] Current Patient Data: Labs: Current Medications Medications (Trade) Dose Ordered Sig/Josseline Route PRN Reason Start Time Stop Time Status Last Admin Dose Admin Clonidine HCl (Catapres) 0.2 mg 1X ONCE PO 10/02/21 06:45 10/02/21 06:46 DC 10/02/21 06:50 Ketorolac Tromethamine (Toradol Im) 60 mg 1X ONCE IM 10/02/21 07:00 10/02/21 07:01 DC Methylprednisolone Sodium Succinate (SOLU-Medrol 125MG VIAL) 125 mg 1X ONCE IM 10/02/21 07:00 10/02/21 07:01 DC Vital Signs: Vital Signs Date Time Temp Pulse Resp B/P (MAP) Pulse Ox O2 Delivery O2 Flow Rate FiO2 10/02/21 06:25 98.1 102 20 194/98 (130) 100 Room Air 98.1 EKG: EKG: EKG was done at 708, heart rate of 86 BPM, Sinus rhythm, No STEMI. , NORMAL AXIS. Radiology/Procedures: Radiology/Procedures: [facility] [address] [place] [address] IMAGING REPORT Signed PATIENT: ASYA CONN ACCOUNT: [id number] : 1980 LOCATION: ER AGE: 41 SEX: F EXAM STATUS: REG ER ORD. PHYSICIAN: MARGO IBRAHIM DO REASON: neck pain radiating to left shoulder and arm PROCEDURE: CERVICAL SPINE 2-3V 2 view cervical spine dated 10/02/2021. COMPARISON: None. INDICATION: Neck pain FINDINGS: 2 views of cervical spine show normal sagittal alignment. Vertebral body heights are maintained. No prevertebral soft tissue swelling. Posterior elements are intact. Mild endplate hypertrophic changes throughout. Multilevel uncovertebral spurring and facet arthropathy. IMPRESSION: 1. No acute radiographic abnormality. 2. Mild multilevel spondylosis. Electronically signed by: Dave Egan MD (10/02/2021 7:08 AM) [facility] [place] DICTATED and SIGNED BY: DAVE EGAN MD DATE: 10/02/21 [id number] Course & Med Decision Making: Course & Med Decision Making Pertinent Labs and Imaging studies reviewed. (See chart for details) Patient is a 41-year-old female who present to ER due to left-sided neck pain that radiated to left shoulder and arm. Symptoms started after she received her COVID vaccine. X-ray did not show any acute problem. Patient most likely had cervical radiculopathy.. It is unlikely that she had DVT in her left arm patient denies any chest pain. Her blood pressure was elevated. Patient has history hypertension, she did not take her blood pressure medication this morning. Patient was given her blood pressure medication in the ER. We did an EKG, did not show any acute problem. Patient will be discharged home, she will need to follow-up with her doctor for reevaluation this week. Jhonatan Disclaimer: Jhonatan Disclaimer: This electronic medical record was generated, in whole or in part, using a voice recognition dictation system. Departure Departure Impression: Primary Impression: Cervical radiculopathy, acute Disposition: HOME / SELF CARE / HOMELESS Condition: STABLE Referrals: SANIA LEE JR, MD (PCP) Follow up with your doctor this week. Patient Instructions: Cervical Radiculopathy Additional Instructions: Thank you for visiting our Emergency Department. We appreciate you trusting us with your care. If any additional problems come up don't hesitate to return to visit us. Please follow up with your primary care provider so they can plan additional care if needed and know about the problem that you had. If symptoms worsen come back to the Emergency Department. Any concerning symptoms that start such as chest pain, shortness of air, weakness or numbness on one side of the body, running high fevers or any other concerning symptoms return to the ER. Scripts Ibuprofen (IBUPROFEN) 800 Mg Tablet 800 MG PO PRN Q8HRS PRN for INFLAMMATION, #20 TAB Prov: MARGO IBRAHIM DO 10/02/21 Prednisone (PREDNISONE) 20 Mg Tablet 20 MG PO DAILY for 7 Days, #7 TAB Prov: MARGO IBRAHIM DO 10/02/21 MARGO IBRAHIM DO Oct 02, 2021 06:52
[2021-10-02] MEDS: KETOROLAC 60 MG/2 ML VIAL. IM ONE ×2 (07:00→07:14)
[2021-10-02] MEDS ORDERED: methylPREDNISolone SOD SUCC PF 125 MG/2 ML VIAL. IM ONE (07:00)
--- NOTE | 2021-10-02 07:11 | RAD ---
2 view cervical spine dated 10/02/2021. COMPARISON: None. INDICATION: Neck pain FINDINGS: 2 views of cervical spine show normal sagittal alignment. Vertebral body heights are maintained. No p revertebral soft tissue swelling. Posterior elements are intact. Mild endplate hypertrophic changes throughout. Multilevel uncovertebral spurring and facet arthropath y. IMPRESSION: 1. No acute radiographic abnormality. 2. Mild multilevel spondylosis. Electronically signed by: Dave Egan MD (10/02/2021 7:08 AM) CARLENE
[2021-10-02 08:26] VITALS: BP 154/98
[2021-10-02] MEDS ORDERED: IBUP-1060 PO (08:32)
[2021-10-02] MEDS ORDERED: PRED20TA PO (08:32)
--- NOTE | 2021-10-03 07:19 | EKG ---
[facility] [address] [place] [address] Test Date: 2021-10-02 Test Time: 07:03:15 Pat Name: ASYA CONN Department: Room: Gender: F Applications Engineer: : 1980 Requested By: MARGO IBRAHIM Order Number: [id number] Reading MD: Measurements Intervals Gatzke Rate: 86 P: 55 HI: 112 QRS: 43 QRSD: 82 T: 98 QT: 372 QTc: 448 Interpretive Statements SINUS RHYTHM T ABNORMALITY IN HIGH LATERAL LEADS ABNORMAL ECG RI6.02 No previous ECG available for comparison
== END 2021-10-02 08:48 | disposition home or self-care (01) ==
LOC: ER 06:25
DX: M54.12 Radiculopathy, cervical region (principal); I10 Essential (primary) hypertension; F17.200 Nicotine dependence, unspecified, uncomplicated; Z88.5 Allergy status to narcotic agent; Z88.6 Allergy status to analgesic agent
CPT/HCPCS: 72040; 93005; 96372; 99285; J2930; J1885

== ENCOUNTER 2021-10-08 16:09 | Emergency (ER) | payer MEDICAID ==
[~2021-10-08] VITALS: Ht 162.6 cm; Wt 115.4 kg
[~2021-10-08 16:09] MED LIST changes: +IBUP-1060 PO; +PRED20TA PO
[2021-10-08 16:58] VITALS: BP 154/98
[2021-10-08] MEDS ORDERED: ONDANSETRON ODT 4 MG TAB.RAPDIS. PO ONE (17:15)
[2021-10-08] MEDS ORDERED: ACETAMINOPHEN 500 MG TABLET PO ONE (17:15)
[2021-10-08 18:40] LABS: INFLUENZA B PATIENT NEGATIVE (NEGATIVE)
[2021-10-08 18:43] LABS: INFLUENZA A PATIENT POSITIVE (NEGATIVE)
[2021-10-08] MEDS ORDERED: ONDA4TAB12 PO (19:02)
--- NOTE | 2021-10-08 19:02 | PHYS DOC ---
Past Medical History Past Medical History: Hypertension Additional Past Medical Histor: back pain Past Surgical History: No Surgical History Additional Past Surgical Histo: back Smoking Status: Current Every Day Smoker Alcohol Use: None Drug Use: None, Marijuana General Adult EDM: Chief Complaint: FLU SYMPTOM HPI: HPI: Patient is a 41-year-old female presents to the emergency department complaining of headaches, nasal stuffiness, generalized body aches and pains since yesterday evening. Patient reports her fianc and her daughter are having similar symptoms. Reports receiving the COVID-19 virus vaccination first dose on 29 September. Denies receiving a flu vaccine for this season. Denies chest pains or shortness of breath, denies fevers or chills, denies other physical complaints or physical concerns. Review of Systems: Review of Systems: 14 body systems of review of systems have been reviewed. See HPI for pertinent positives and negative responses, otherwise all other systems are negative, nonpertinent or noncontributory. Constitutional: Negative except as outlined in HPI above. Skin: Negative except as outlined in HPI above. Eyes: Negative except as outlined in HPI above. HENT: Negative except as outlined in HPI above. Respiratory: Negative except as outlined in HPI above. Cardiovascular: Negative except as outlined in HPI above. GI: Negative except as outlined in HPI above. : Negative except as outlined in HPI above. Musculoskeletal: Negative except as outlined in HPI above. Integument: Negative except as outlined in HPI above. Neurologic: Negative except as outlined in HPI above. Endocrine: Negative except as outlined in HPI above. Lymphatic: Negative except as outlined in HPI above. Psychiatric: Negative except as outlined in HPI above. Heart Score: C/O Chest Pain: No Risk Factors: Risk Factors: DM, Current or recent (<one month) smoker, HTN, HLP, family history of CAD, obesity. Risk Scores: Score 0 - 3: 2.5% MACE over next 6 weeks - Discharge Home Score 4 - 6: 20.3% MACE over next 6 weeks - Admit for Clinical Observation Score 7 - 10: 72.7% MACE over next 6 weeks - Early Invasive Strategies Current Medications: Current Medications Medications (Trade) Dose Ordered Sig/Josseline Start Time Stop Time Status Last Admin Dose Admin Acetaminophen (Tylenol) 1,000 mg 1X ONCE 10/08/21 17:15 10/08/21 17:16 DC 10/08/21 17:41 1,000 MG Ondansetron HCl (Zofran Odt) 4 mg 1X ONCE 10/08/21 17:15 10/08/21 17:16 DC 10/08/21 17:41 4 MG Allergies: Allergies: Allergies Coded Allergies Type Severity Reaction Last Updated Verified lisinopril Allergy Intermediate Swelling 10/02/21 Yes morphine Allergy Intermediate hives 10/02/21 Yes naproxen Allergy Mild Itching 10/02/21 Yes Physical Exam: PE: Constitutional: Well developed, well nourished, no acute distress, non-toxic appearance. 41-year-old female in no apparent distress. HENT: Normocephalic, atraumatic. Oropharynx moist, pink, no deep tissue infectious process appreciated, no postnasal drip, nasal turbinates boggy, no lymphadenopathy of the head and neck appreciated, patient speaking in normal voice tones, no drooling, no trismus. Eyes: Conjunctiva normal, no discharge. Neck: Normal range of motion, no stridor. No nuchal rigidity. No meningismus signs. Cardiovascular: No cyanosis appreciated, distal cap refill less than 2 seconds. Heart sounds S1-S2 auscultation, regular rate and rhythm. Lungs & Thorax: Patient is in no respiratory distress, no audible adventitious lung sounds appreciated. Lung sounds clear to auscultation all lung mora. Abdomen: Nontender, no abnormalities noted. Skin: Warm, dry, no erythema, no rash. Back: No tenderness, no deformities. Extremities: No tenderness, no cyanosis, no clubbing, ROM intact, no edema. Neurologic: Alert and oriented X 3, normal motor function, normal sensory function, no focal deficits noted. Psychologic: Affect normal, judgement normal, mood normal. Current Patient Data: Labs: Laboratory Tests Test 10/08/21 17:30 Influenza Type A Antigen Positive (NEGATIVE) *A Influenza Type B Antigen Negative (NEGATIVE) SARS-CoV-2 Antigen (Rapid) Negative (NEGATIVE) Vital Signs: Vital Signs Date Time Temp Pulse Resp B/P (MAP) Pulse Ox O2 Delivery O2 Flow Rate FiO2 10/08/21 16:58 98.6 213 22 154/98 (116) 99 Room Air 98.6 EKG: EKG: [] Radiology/Procedures: Radiology/Procedures: [] Course & Med Decision Making: Course & Med Decision Making Pertinent Labs and Imaging studies reviewed. (See chart for details) 41-year-old female, vital signs reviewed, resents emergency department concerning flulike symptoms at home since yesterday. Patient's physical examination concerning for viral illness, will order rapid COVID-19 testing, rapid A/B testing, will give Zofran for reports of nausea, p.o. Tylenol for body aches and pains. Patient rapid Covid test negative, rapid flu A+, flu B-., Discussed findings with patient, strict follow-up with primary care for ongoing symptoms, stay well-hydrated, home care for flu virus and viral syndrome, return to ER precautions and concerns were reviewed, patient gave verbal understanding of and is amenable to ED discharge planning. Discussed with the patient all findings and diagnostic testing as well as the need to follow-up with their primary care provider for further evaluation and treatment or return to the ED if any new or worsening symptoms. Strict return precautions were also discussed at length, the patient voiced understanding and agreement with the discharge planning. The patient was nontoxic in appearance, in no apparent distress, and hemodynamically stable at the time of disposition. [employer] Disclaimer: [employer] Disclaimer: This electronic medical record was generated, in whole or in part, using a voice recognition dictation system. Departure Departure Impression: Primary Impression: Influenza A Additional Impression: Viral syndrome Disposition: 01 HOME / SELF CARE / HOMELESS Condition: GOOD Referrals: SANIA LEE JR, MD (PCP) Patient Instructions: Influenza Facts, Influenza, Adult Additional Instructions: You were seen today in the emergency department for flulike signs symptoms. You were given oral Zofran for nausea, Tylenol for aches and pains. A rapid COVID 19 along with rapid flu A and flu B testing was performed today. Your Covid test was negative along with your rapid flu B, however your rapid flu A test is positive. I have attached information about influenza to this document, please review. Please stay well-hydrated and continue to take Tylenol [id number] for ongoing symptoms. Follow-up with your primary care physician soon. If you do not have a primary care physician I have attached a list of area primary care providers for you to choose and establish health care. Return to the emergency department for worsening symptoms or other concerns. Thank you for visiting our Emergency Department. It was a pleasure taking care of you today in the emergency department and we appreciate you trusting us with your care. If any additional problems come up don't hesitate to return to visit us. Please follow up with your primary care provider so they can plan additional care if needed and know about the problem that you had. If symptoms worsen come back to the Emergency Department. Any concerning symptoms that start such as chest pain, shortness of air, weakness or numbness on one side of the body, running high fevers or any other concerning symptoms return to the ER. Scripts Ondansetron (ONDANSETRON ODT) 4 Mg Tab.rapdis 1 TAB PO PRN Q6-8HRS for nausea, #16 TAB 0 Refills Prov: ISABELL POZO APRN 10/08/21 ISABELL POZO APRN Oct 08, 2021 19:02
== END 2021-10-08 21:57 | disposition home or self-care (01) ==
LOC: ER 16:09
DX: J10.1 Influenza due to other identified influenza virus with other respiratory manifestations (principal); B34.9 Viral infection, unspecified; Z20.822 Contact with and (suspected) exposure to COVID-19; I10 Essential (primary) hypertension; F17.200 Nicotine dependence, unspecified, uncomplicated; Z88.5 Allergy status to narcotic agent; Z88.6 Allergy status to analgesic agent
CPT/HCPCS: 87428; 99283